=== PATIENT | female | born 1980 | race Caucasian/White ===

== ENCOUNTER → 2016-07-23 | Outpatient (CLI) | payer MEDICAID | LOC: FIMAGING 12:29 | PROVIDERS: ATTEND Family Medicine | DX: O09.522 Supervision of elderly multigravida, second trimester (principal); O99.342 Other mental disorders complicating pregnancy, second trimester; Z3A.13 13 weeks gestation of pregnancy; Z98.891 History of uterine scar from previous surgery ==

== ENCOUNTER → 2016-09-21 | Outpatient (CLI) | payer MEDICAID | LOC: FIMAGING 13:03 | PROVIDERS: ATTEND Family Medicine | DX: O09.522 Supervision of elderly multigravida, second trimester (principal); Z3A.23 23 weeks gestation of pregnancy ==

== ENCOUNTER → 2016-10-29 | Outpatient (CLI) | payer MEDICAID | LOC: FIMAGING 13:49 | PROVIDERS: ATTEND Family Medicine | DX: O36.62X0 Maternal care for excessive fetal growth, second trimester, not applicable or unspecified (principal); Z3A.27 27 weeks gestation of pregnancy; O09.212 Supervision of pregnancy with history of pre-term labor, second trimester ==

== ENCOUNTER 2016-12-27 19:38 | Observation (INO) | payer MEDICAID ==
--- NOTE | 2016-12-28 00:53 | GHP ---
[f rep st] PREOP HISTORY AND PHYSICAL DATE OF ADMISSION: 12/27/2016 Patient is a 36-year-old 2, para 0-1-0-1, who is receiving care at [facility]. She is 35+ weeks gestation. She presented for leaking 1 drop of amniotic fluid and having occasional contractions. Patient has a history of delivery, so she was evaluated and did not have a wet perineum, she did not have any fluid in her underwear, and her Nitrazine was negative. Her nonstress test was category 1 and reassuring. Her cervix was examined by the nurse, and she was closed and posterior. The patient did not complain of leaking any further fluid, and the initial description was 1 small drop that had come out. I did not evaluate the patient because I was not in- house. The patient was discharged to home. I have reviewed the strip. The patient was instructed to follow up with her provider, and labor precautions and kick counts and SROM precautions were discussed with the patient. ASSESSMENT/PLAN: A 36-year-old 2, para 0-1-0-1, at 35+ weeks gestation with a reassuring baby and was found not to be ruptured. /[id number]/MODL MTDD
== END 2016-12-27 21:50 | disposition home or self-care (01) ==
LOC: FLD 19:38
PROVIDERS: ADMIT Advanced Practice Midwife; ATTEND Advanced Practice Midwife
DX: O47.03 False labor before 37 completed weeks of gestation, third trimester (principal); Z3A.35 35 weeks gestation of pregnancy

== ENCOUNTER → 2017-01-04 | Outpatient (CLI) | payer MEDICAID | LOC: FIMAGING 14:18 | PROVIDERS: ATTEND Family Medicine | DX: O36.63X0 Maternal care for excessive fetal growth, third trimester, not applicable or unspecified (principal); O09.213 Supervision of pregnancy with history of pre-term labor, third trimester; Z3A.36 36 weeks gestation of pregnancy; Z98.891 History of uterine scar from previous surgery ==